=== PATIENT | female | born 1970 | race Caucasian/White ===

== ENCOUNTER 2022-08-30 14:52 | Outpatient (CLI) | payer MEDICAID, SELFPAY ==
[2022-08-30 22:14] LABS: Chloride* 106 mmol/L (96-114); Sodium* 141 mmol/L (135-149)
[2022-08-30 22:15] LABS: Potassium* 4.1 mmol/L (3.6-5.1)
[2022-08-30 22:17] LABS: Creatinine* 0.7 mg/dL (0.5-1.5); Estimated Glomerular Filt Rate 103 ml/min
[2022-08-30 22:18] LABS: Blood Urea Nitrogen* 18 mg/dL (7-30); Calcium* 9.3 mg/dL (8.4-10.6); Carbon Dioxide* 29 mmol/L (20-32); Glucose* 93 mg/dL (60-115)
== END 2022-08-30 14:53 | disposition home or self-care (01) ==
LOC: FRMREF 14:53
PROVIDERS: PCP Family Medicine; Visit Provider Family Medicine
DX: Z01.818 Encounter for other preprocedural examination (principal)
CPT/HCPCS: 80048